=== PATIENT | female | born 1935 | race Caucasian/White ===

== ENCOUNTER 2016-06-19 16:39 | Emergency (ER) | payer MEDICARE, OTHER ==
[~2016-06-19] VITALS: Ht 180.3 cm; Wt 113.5 kg
[~2016-06-19 16:39] MED LIST: CORTI10A AD; HYDR-2768 PO; LEVO.05 PO; SYNT25TA PO; TELM1TAB56 PO
[2016-06-19 16:43] VITALS: BP 137/76; PULSE 92; RESP 20; TEMP 97.7; O2SAT 94
--- NOTE | 2016-06-19 17:01 | PD ---
Physical Exam Date Seen by Provider: Jun 19, 2016 Time Seen by Provider: 16:53 Narrative 81 y/o female presents with 10 days of increased SOB. Patient has had recent Mastectomy 5 moths ago with radiation and oral chemo that she stopped 2 weeks ago. Patient states no chest pain, but increased dyspnea with exertion over the past 3 weeks. Patient has no lower extremity pain or edema. Patient has had some mild orthopnea. Her male infertility specialist recommended she come in to be seen. V/S stable. Waiting bed placement. Data Data Last Documented VS Vital Signs Date Time Temp Pulse Resp B/P Pulse Ox O2 Delivery O2 Flow Rate FiO2 06/19/16 16:43 97.7 92 20 137/76 94 Room Air [facility] Medical Record Reviewed: Yes Supervised Visit with ANGELIA: Yes Condition: Stable Nolberto Trammell Jun 19, 2016 17:01
[2016-06-19 17:13] VITALS: O2SAT 95
[2016-06-19] MEDS ORDERED: SODIUM CHLORIDE 0.9% FLUSH 10 ML FLUSH IVF PRN (17:15)
[2016-06-19 17:40] LABS: AUTOMATED NEUTROPHIL # 2.9 TH/MM3 (1.8-7.7); BASOPHIL # 0.1 TH/MM3 (0-0.2); BASOPHIL % 1.3 % (0.0-2.0); EOSINOPHIL # 0.1 TH/MM3 (0-0.4); EOSINOPHIL % 2.9 % (0.0-4.0); HEMATOCRIT 41.7 % (35.0-46.0); HEMO FLAGS DIFF FINAL; LYMPH % 23.8 % (9.0-44.0); LYMPHOCYTE # 1.1 TH/MM3 (1.0-4.8); MEAN CORPUSCULAR HEMOGLOBIN 28.9 PG (27.0-34.0); MEAN CORPUSCULAR HGB CONC 34.5 % (32.0-36.0); MONO % 8.8 % (0.0-8.0); NEUT % 63.2 % (16.0-70.0); PLATELET COUNT 228 TH/MM3 (150-450); RED BLOOD COUNT 4.97 MIL/MM3 (4.00-5.30); RED CELL DISTRIBUTION WIDTH 14.4 % (11.6-17.2); WHITE BLOOD COUNT 4.6 TH/MM3 (4.0-11.0)
--- NOTE | 2016-06-19 17:49 | PD ---
HPI Chief Complaint: Respiratory Symptoms Time Seen by Provider: 17:10 Travel History International Travel<30 days: No Contact w/Intl Traveler<30days: No Traveled to known affect area: No History of Present Illness HPI Patient is 81-year-old female presenting to emergency department for evaluation of shortness of breath. Patient states she's had these symptoms for approximately 10 days, her shortness of breath is worse with exertion. She reports an occasional dry cough but no fevers, chills, chest pain, nasal congestion, peripheral edema or abdominal distention. Patient states her signal helper told her to come in to be evaluated. Patient had a right mastectomy 5 months ago, and recently finished chemotherapy. Patient's past medical history significant for hypertension, hypothyroidism, sleep apnea and breast cancer. PFSH Past Medical History Cancer: Yes Diabetes: No Glaucoma: No Hepatitis: No Hiatal Hernia: No Hypertension: Yes Respiratory: Yes Sleep Apnea: Yes Thyroid Disease: Yes (HYPOTOHYROID) Past Surgical History Mastectomy: Yes (right side ) Pacemaker: No Other Surgery: Yes Social History Alcohol Use: No Tobacco Use: No Substance Use: No Allergies-Medications (Allergen,Severity, Reaction): Coded Allergies: No Known Allergies (Verified , 06/19/16) Reported Meds & Prescriptions Reported Meds & Active Scripts Active Reported Synthroid (Levothyroxine Sodium) 25 Mcg Tab 25 Mcg PO EVERY OTHER DAY Levothyroxine (Levothyroxine Sodium) 50 Mcg Tab 50 Mcg PO EVERY OTHER DAY Hydrochlorothiazide 12.5 Mg Tab 12.5 Mg PO DAILY Micardis (Telmisartan) 40 Mg Tab 40 Mg PO DAILY Review of Systems Except as stated in HPI: all other systems reviewed are Neg General / Constitutional: No: Fever, Chills HENT: No: Headaches Cardiovascular: Positive: Dyspnea on exertion, No: Chest Pain or Discomfort, Tachycardia, Diaphoresis, Edema Respiratory: Positive: Cough, Shortness of Breath, Orthopnea Gastrointestinal: No: Abdominal Pain Neurologic: No: Dizziness, Syncope Physical Exam Narrative GENERAL: Well-developed, well-nourished, alert elderly female. Resting comfortably in no acute distress. SKIN: Focused skin assessment warm/dry. HEAD: Atraumatic. Normocephalic. EYES: Pupils equal and round. No scleral icterus. No injection or drainage. ENT: No nasal bleeding or discharge. Mucous membranes pink and moist. NECK: Trachea midline. No JVD. CARDIOVASCULAR: Regular rate and rhythm. No murmur appreciated. RESPIRATORY: No accessory muscle use. Clear to auscultation. Breath sounds equal bilaterally. GASTROINTESTINAL: Abdomen soft, non-tender, nondistended. Hepatic and splenic margins not palpable. MUSCULOSKELETAL: No obvious deformities. No clubbing. No cyanosis. Trace edema in bilateral ankles. NEUROLOGICAL: Awake and alert. No obvious cranial nerve deficits. Motor grossly within normal limits. Normal speech. PSYCHIATRIC: Appropriate mood and affect; insight and judgment normal. Data Data Last Documented VS Vital Signs Date Time Temp Pulse Resp B/P Pulse Ox O2 Delivery O2 Flow Rate FiO2 06/19/16 19:17 75 17 94 Room Air 06/19/16 19:16 119/69 06/19/16 16:43 97.7 Orders Complete Blood Count With Diff (06/19/16 17:11) Comprehensive Metabolic Panel (06/19/16 17:11) B-Type Natriuretic Peptide (06/19/16 17:11) Act Partial Throm Time (Ptt) (06/19/16 17:11) Prothrombin Time / Inr (Pt) (06/19/16 17:11) Magnesium (Mg) (06/19/16 17:11) Ckmb (Isoenzyme) Profile (06/19/16 17:11) Troponin I (06/19/16 17:11) Iv Access Insert/Monitor (06/19/16 17:11) Electrocardiogram (06/19/16 17:11) Ecg Monitoring (06/19/16 17:11) Oximetry (06/19/16 17:11) Oxygen Administration (06/19/16 17:11) Chest, Single Ap (06/19/16 17:11) Sodium Chloride 0.9% Flush (Ns Flush) (06/19/16 17:15) Ct Pulmonary Angiogram (06/19/16 ) Iohexol 350 Inj (Omnipaque 350 Inj) (06/19/16 19:31) Resp Request For Service (06/19/16 ) Labs Laboratory Tests Test 06/19/16 17:19 White Blood Count 4.6 TH/MM3 Red Blood Count 4.97 MIL/MM3 Hemoglobin 14.4 GM/DL Hematocrit 41.7 % Mean Corpuscular Volume 84.0 FL Mean Corpuscular Hemoglobin 28.9 PG Mean Corpuscular Hemoglobin 34.5 % Concent Red Cell Distribution Width 14.4 % Platelet Count 228 TH/MM3 Mean Platelet Volume 8.4 FL Neutrophils (%) (Auto) 63.2 % Lymphocytes (%) (Auto) 23.8 % Monocytes (%) (Auto) 8.8 % Eosinophils (%) (Auto) 2.9 % Basophils (%) (Auto) 1.3 % Neutrophils # (Auto) 2.9 TH/MM3 Lymphocytes # (Auto) 1.1 TH/MM3 Monocytes # (Auto) 0.4 TH/MM3 Eosinophils # (Auto) 0.1 TH/MM3 Basophils # (Auto) 0.1 TH/MM3 CBC Comment DIFF FINAL Differential Comment Prothrombin Time 10.4 SEC Prothromb Time International 0.9 RATIO Ratio Activated Partial 24.1 SEC Thromboplast Time Sodium Level 139 MEQ/L Potassium Level 3.6 MEQ/L Chloride Level 104 MEQ/L Carbon Dioxide Level 29.4 MEQ/L Anion Gap 6 MEQ/L Blood Urea Nitrogen 12 MG/DL Creatinine 0.74 MG/DL Estimat Glomerular Filtration 76 ML/MIN Rate Random Glucose 101 MG/DL Calcium Level 9.3 MG/DL Magnesium Level 2.0 MG/DL Total Bilirubin 0.5 MG/DL Aspartate Amino Transf 19 U/L (AST/SGOT) Alanine Aminotransferase 26 U/L (ALT/SGPT) Alkaline Phosphatase 76 U/L Total Creatine Kinase 51 U/L Troponin I LESS THAN 0.02 NG/ML B-Type Natriuretic Peptide 38 PG/ML Total Protein 7.1 GM/DL Albumin 3.5 GM/DL MDM Medical Decision Making Medical Screen Exam Complete: Yes Emergency Medical Condition: Yes Interpretation(s) Vital Signs Date Time Temp Pulse Resp B/P Pulse Ox O2 Delivery O2 Flow Rate FiO2 06/19/16 19:17 75 17 94 Room Air 06/19/16 19:16 75 20 119/69 94 Room Air 06/19/16 17:13 95 Room Air 06/19/16 17:13 95 Room Air 06/19/16 17:11 92 18 95 Room Air 06/19/16 16:43 97.7 92 20 137/76 94 Room Air Laboratory Tests Test 06/19/16 17:19 White Blood Count 4.6 TH/MM3 Red Blood Count 4.97 MIL/MM3 Hemoglobin 14.4 GM/DL Hematocrit 41.7 % Mean Corpuscular Volume 84.0 FL Mean Corpuscular Hemoglobin 28.9 PG Mean Corpuscular Hemoglobin 34.5 % Concent Red Cell Distribution Width 14.4 % Platelet Count 228 TH/MM3 Mean Platelet Volume 8.4 FL Neutrophils (%) (Auto) 63.2 % Lymphocytes (%) (Auto) 23.8 % Monocytes (%) (Auto) 8.8 % Eosinophils (%) (Auto) 2.9 % Basophils (%) (Auto) 1.3 % Neutrophils # (Auto) 2.9 TH/MM3 Lymphocytes # (Auto) 1.1 TH/MM3 Monocytes # (Auto) 0.4 TH/MM3 Eosinophils # (Auto) 0.1 TH/MM3 Basophils # (Auto) 0.1 TH/MM3 CBC Comment DIFF FINAL Differential Comment Prothrombin Time 10.4 SEC Prothromb Time International 0.9 RATIO Ratio Activated Partial 24.1 SEC Thromboplast Time Sodium Level 139 MEQ/L Potassium Level 3.6 MEQ/L Chloride Level 104 MEQ/L Carbon Dioxide Level 29.4 MEQ/L Anion Gap 6 MEQ/L Blood Urea Nitrogen 12 MG/DL Creatinine 0.74 MG/DL Estimat Glomerular Filtration 76 ML/MIN Rate Random Glucose 101 MG/DL Calcium Level 9.3 MG/DL Magnesium Level 2.0 MG/DL Total Bilirubin 0.5 MG/DL Aspartate Amino Transf 19 U/L (AST/SGOT) Alanine Aminotransferase 26 U/L (ALT/SGPT) Alkaline Phosphatase 76 U/L Total Creatine Kinase 51 U/L Troponin I LESS THAN 0.02 NG/ML B-Type Natriuretic Peptide 38 PG/ML Total Protein 7.1 GM/DL Albumin 3.5 GM/DL Last Impressions Chest X-Ray 06/19/16 1711 Signed Impressions: Service Date/Time: Sunday, June 19, 2016 18:38 - CONCLUSION: 1. Minimal left lingular atelectasis/scarring. 2. Otherwise, no acute cardiopulmonary process. Devon Zavala MD CT Angiography 06/19/16 0000 Signed Impressions: Service Date/Time: Sunday, June 19, 2016 19:19 - CONCLUSION: The study is negative for pulmonary embolism. Amadeo Bang MD Vital Signs Date Time Temp Pulse Resp B/P Pulse Ox O2 Delivery O2 Flow Rate FiO2 06/19/16 17:13 95 Room Air 06/19/16 17:13 95 Room Air 06/19/16 17:11 92 18 95 Room Air 06/19/16 16:43 97.7 92 20 137/76 94 Room Air Differential Diagnosis Pneumonia versus pulmonary embolism versus congestive heart failure versus deconditioning versus other Narrative Course Patient is a 81-year-old female presenting to emergency evaluation of shortness of breath for the last week and a half. She states that she was sent by her doctor for evaluation for possible pulmonary embolism. Signs are stable, she is well oxygenated on room air and afebrile. Patient placed on telemetry monitoring and continuous pulse oximetry, IV access initiated, labs and imaging ordered. CBC is unremarkable Chemistry is unremarkable Coags are unremarkable. BNP is normal Chest x-ray shows no acute cardiopulmonary disease CT pulmonary angiogram is negative for pulmonary embolism Walking O2 sat is 95% There is no identifiable cardiopulmonary process to identify the cause patient' s shortness of breath. Discussed the patient could be secondary to deconditioning due to her recent mastectomy with radiation therapy. Additionally patient is obese. She is encouraged to follow-up with her primary doctor and signal helper as scheduled. She is encouraged to return to emergency department for any new or worsening symptoms. Patient verbalized understanding of these instructions. Patient is stable for discharge. Diagnosis Primary Impression: Shortness of breath Referrals: [facility] Primary Care Physician Patient Instructions: Dyspnea (ED), General Instructions Additional Instructions: Follow-up with your primary doctor and signal helper Maintain adequate fluid intake Eat regular healthy meals Return to emergency department for any new or worsening symptoms Med/Other Pt SpecificInfo: No Change to Meds Disposition: 01 DISCHARGE HOME Condition: Stable Renetta Coyle [facility] Jun 19, 2016 17:49
[2016-06-19 18:01] LABS: ALT (GPT) 26 U/L (10-53); ANION GAP 6 MEQ/L (5-15); AST (GOT) 19 U/L (15-37); BICARBONATE 29.4 MEQ/L (21.0-32.0); BLOOD UREA NITROGEN 12 MG/DL (7-18); CHLORIDE 104 MEQ/L (98-107); GLOMERULAR FILTRATION RATE 76 ML/MIN (>89); POTASSIUM 3.6 MEQ/L (3.5-5.1); SODIUM (NA) 139 MEQ/L (136-145)
[2016-06-19 18:06] LABS: ALKALINE PHOSPHATASE 76 U/L (45-117); TOTAL BILIRUBIN ADULT 0.5 MG/DL (0.2-1.0)
[2016-06-19 18:09] LABS: APTT (PATIENT) 24.1 SEC (24.3-30.1); INTERNATIONAL NORMALIZED RATIO 0.9 RATIO; PROTHROMBIN TIME - PATIENT 10.4 SEC (9.8-11.6)
[2016-06-19 18:19] LABS: CREATINE KINASE 51 U/L (26-192)
[2016-06-19 19:16] VITALS: BP 119/69; PULSE 75; RESP 20; O2SAT 94
--- NOTE | 2016-06-19 19:20 | RADRPT ---
EXAM DATE/TIME: 06/19/2016 18:38 [facility] COMPARISON: No previous studies available for comparison. INDICATIONS : Short of Breath MEDICAL HISTORY : Carcinoma, breast. SURGICAL HISTORY : Mastectomy, right. ENCOUNTER: Initial ACUITY: 1 day PAIN SCORE: 9/10 LOCATION: Bilateral chest FINDINGS: A single view of the chest demonstrates the lungs to be symmetrically aerated with minimal atelectati c changes in the left lingular region. The cardiomediastinal contours are unremarkable. Osseous str uctures are intact. Findings right mastectomy with right axillary kyree dissection. CONCLUSION: 1. Minimal left lingular atelectasis/scarring. 2. Otherwise, no acute cardiopulmonary process. Devon Zavala MD on June 19, 2016 at 19:17 Board Certified Radiologist. This report was verified electronically.
[2016-06-19] MEDS ORDERED: IOHEXOL 350 MG/ML 10 ML VIAL (for RAD DIAG) IV ONE (19:31)
--- NOTE | 2016-06-19 20:06 | RADRPT ---
EXAM DATE/TIME: 06/19/2016 19:19 [facility] COMPARISON: CHEST SINGLE AP, June 19, 2016, 18:38. INDICATIONS : Shortness of breath X one week. IV CONTRAST: 75 cc Omnipaque 350 (iohexol) IV RADIATION DOSE: 23.18 CTDIvol (mGy) MEDICAL HISTORY : Carcinoma, breast. Hypertension. SURGICAL HISTORY : Mastectomy, right. ENCOUNTER: Initial ACUITY: 1 day PAIN SCALE: 0/10 LOCATION: chest TECHNIQUE: Volumetric scanning of the chest was performed using a pulmonary embolism protocol MIP images were re constructed. Using automated exposure control and adjustment of the mA and/or kV according to patien t size, radiation dose was kept as low as reasonably achievable to obtain optimal diagnostic quality images. FINDINGS: PULMONARY ARTERIES: No filling defects are seen in the pulmonary arteries through the segmental level. LUNGS: There is some atelectasis posterior to the tortuous lower thoracic aorta. No focal infiltrates seen. PLEURAE: There is no pleural thickening or pleural effusion. MEDIASTINUM: There is good visualization of the great vessels of the middle mediastinum. No evidence of mediastin al or hilar adenopathy/mass. The aortic arch and descending aorta is tortuous. MISCELLANEOUS: Right mastectomy. Both vertebral clips in the right axilla. No evidence of axillary adenopathy. CONCLUSION: The study is negative for pulmonary embolism. Amadeo Bang MD on June 19, 2016 at 20:01 Board Certified Radiologist. This report was verified electronically.
[2016-06-19] MEDS ORDERED: HYDR12.56 PO (20:11)
[2016-06-19] MEDS ORDERED: TELM40 PO (20:11)
[2016-06-19] MEDS ORDERED: SYNT25TA PO (20:11)
[2016-06-19] MEDS ORDERED: LEVO50TA4 PO (20:11)
--- NOTE | 2016-06-20 13:27 | EKG ---
Date Performed: 06/19/2016 Time Performed: 17:26:57 PTAGE: 81 years EKG: Sinus rhythm WITH OCCASIONAL SUPRAVENTRICULAR PREMATURE COMPLEXES INTRAVENTRICULAR CONDUCTION DELAY LEFT VENTRICU LAR HYPERTROPHY AND ST-T CHANGE Compared to prior tracing no significant change ABNORMAL ECG PREVIOUS TRACING : 08/01/2008 09.53 DOCTOR: Rosalio Almazan Interpretating Date/Time 06/20/2016 13:26:45
== END 2016-06-19 22:26 | disposition home or self-care (01) ==
LOC: NEPE 16:39
DX: R06.02 Shortness of breath (principal); I10 Essential (primary) hypertension; Z90.11 Acquired absence of right breast and nipple; Z85.3 Personal history of malignant neoplasm of breast; R94.31 Abnormal electrocardiogram [ECG] [EKG]
CPT/HCPCS: 71010; 71275; 80053; 82550; 83735; 83880; 84484; 85025; 85610; 85730; 93005; 94620; 99285; Q9967

== ENCOUNTER → 2017-04-12 | Day surgery (SDC) | payer MEDICARE, OTHER ==
[~2017-04-12] MED LIST changes: +BUPIVACAINE HCL PF 0.25% 30 ML VIAL ONE; -CORTI10A AD; -HYDR-2768 PO; +HYDR12.56 PO; +KETOROLAC TROMETHAMINE 30 MG/ML (IVP) VIAL IV PUSH ONE; +LACTATED RINGER'S 1000 ML INJ 1,000 ML ONE; -LEVO.05 PO; +LEVO50TA4 PO; +ONDANSETRON HCL 4 MG/2 ML VIAL IV PUSH ONE; +PROPOFOL 200 MG/20 ML AMP IV ONE; -TELM1TAB56 PO; +TELM40 PO; +ceFAZolin 2 GM PREMIX 50 ML ONE
--- NOTE | 2017-04-12 21:41 | MP ---
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 PROCEDURES PERFORMED 1. Right fourth digit PIPJ fusion 2. Right fifth digit the IPJ fusion 3. Web space advancement plastic surgery procedure for stabilization of deformed digit. ESTIMATED BLOOD LOSS Less than 30 mL ANESTHESIA General with local 15 cc of 0.25% Marcaine plain. IMPLANTABLES x2 0.45 K-wires. TOURNIQUET TIME: 37 minutes at 250 mmHg about the patient's ankle. 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 She was counseled about the possibility of amputation of the digit but she wished to try deformity correction. The planned procedure was described to the patient. She understood that there may be recurrence of deformity, burning, stinging, need for more surgery at a later date. PROCEDURE IN DETAIL Under mild sedation the patient was brought to the operating room, placed on the operating room table in the supine position. Following the induction of general anesthesia, local anesthesia was obtained about the patient's right forefoot utilizing standard block fashion. The right foot was then scrubbed, prepped and draped in the usual aseptic fashion. The foot was elevated, exsanguinated. The previously placed mid ankle tourniquet was inflated to 250 mmHg. A half mood type incision was made at the level of the fourth digit mirroring a half mood incision at the base of the fifth digit. This tissue, the interspace skin was then excised allowing for exposure of the chronically dislocated PIPJ of the medial aspect of the fifth digit. Capsular incision was made showing arthritic findings and chronic dislocation and instability at the PIPJ. The head of the proximal phalanx was then removed. The base of the middle phalanx was also curetted of all articular surface in preparation for fusion. Next a dorsal incision was made over the fourth digit PIPJ. Sharp and blunt dissection was carried down. A linear incision was made over the extensor digitorum longus tendon. The head of the proximal phalanx was then removed preparing for arthrodesis and the base the middle phalanx curetted preparing for arthrodesis. A wire was then placed through the middle phalanx of the distal phalanx and retrograded back across the proximal phalangeal joint fusion site stopping just short of the MPJ. This was performed on the fourth and fifth digit. Next Vicryl was used to close the deep dermal contents of and tendon fourth digit DIPJ fusion site. Skin was closed utilizing nylon. The elliptical skin web space advancement was then repaired utilizing 3-0 Vicryl and nylon. There is noted to be stability of the digit significant improvement after pinning and repair of hammertoe deformity. Upon relieving the tourniquet there is a prompt hyperemic response to all digits without any delayed capillary fill time. A bulky bandage placed. The patient transferred from OR to PACU with all vital signs stable. She is heel weight bear to tolerance. She will ice, elevate. I will see the patient within 3-5 days. RUTH Winkler/GIANA /2:16 PM /9:18 PM
== END | disposition home or self-care (01) ==
LOC: ESDC 12:22
PROVIDERS: ATTEND Podiatrist Foot & Ankle Surgery
DX: M20.41 Other hammer toe(s) (acquired), right foot (principal)
CPT/HCPCS: 01480; 28285; J0690; J1885; J2405; J3010; J7120

== ENCOUNTER → 2017-06-09 | Outpatient (CLI) | payer MEDICARE, OTHER ==
[~2017-06-09] MED LIST changes: -BUPIVACAINE HCL PF 0.25% 30 ML VIAL ONE; -KETOROLAC TROMETHAMINE 30 MG/ML (IVP) VIAL IV PUSH ONE; -LACTATED RINGER'S 1000 ML INJ 1,000 ML ONE; -ONDANSETRON HCL 4 MG/2 ML VIAL IV PUSH ONE; -PROPOFOL 200 MG/20 ML AMP IV ONE; -ceFAZolin 2 GM PREMIX 50 ML ONE
[2017-06-09 13:17] LABS: ALBUMIN 3.4 GM/DL (3.4-5.0); AST (GOT) 17 U/L (15-37); BICARBONATE 29.5 MEQ/L (21.0-32.0); BLOOD UREA NITROGEN 17 MG/DL (7-18); CALCIUM 9.3 MG/DL (8.5-10.1); CHLORIDE 108 MEQ/L (98-107); CREATININE 0.62 MG/DL (0.50-1.00); GLOMERULAR FILTRATION RATE 93 ML/MIN (>89); GLUCOSE,FASTING 78 MG/DL (74-99); SODIUM (NA) 143 MEQ/L (136-145)
[2017-06-09 13:28] LABS: ALKALINE PHOSPHATASE 100 U/L (45-117); ALT (GPT) 26 U/L (10-53); TOTAL BILIRUBIN ADULT 0.5 MG/DL (0.2-1.0); TOTAL PROTEIN 7.2 GM/DL (6.4-8.2)
== END ==
LOC: PLAB 08:40
PROVIDERS: ATTEND Family Medicine
DX: I12.9 Hypertensive chronic kidney disease with stage 1 through stage 4 chronic kidney disease, or unspecified chronic kidney disease (principal); N18.2 Chronic kidney disease, stage 2 (mild); E03.9 Hypothyroidism, unspecified
CPT/HCPCS: 36415; 80053; 84443